=== PATIENT | male | born 1990 | race Caucasian/White ===

== ENCOUNTER 2024-06-07 13:43 | Emergency (ER) | payer OTHER, SELFPAY ==
--- NOTE | ~2024-06-07 | XR_ITS ---
EXAMINATION: XR finger 1st LT min 2V DATE: 06/07/2024 14:13 INDICATION: Left thumb injury. TECHNIQUE: 3 views of left thumb were obtained. COMPARISON: None. FINDINGS: There is a nondisplaced oblique fracture of tuft of first distal phalanx. 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 IMPRESSION: 1. Nondisplaced oblique fracture of tuft of first distal phalanx. Reviewed, dictated and finalized at location A.
--- NOTE | 2024-06-07 13:49 | ED.UPPEXIN ---
HPI - Extremity Injury (Upper) General Chief Complaint: Extremity Injury, Upper Stated Complaint: LT thump Pain Time Seen by Provider: 06/07/24 13:49 Source: patient Mode of arrival: ambulatory Limitations: no limitations History of Present Illness HPI narrative: Khadar's a 34-year-old male patient presenting to the clinic today with complaints of a left thumb injury that occurred at 11:00 a.m. this morning while at work. He reports he smashed his finger between a part and the machine. He was wearing gloves at that time. Has a superficial laceration to the volar aspect of the thumb as well as bleeding coming from underneath the thumbnail. States that the distal thumb is throbbing. Rates pain 6/10 currently. Bleeding is controlled. Tetanus is unknown Related Data Home Medications Medication Instructions Recorded Confirmed apixaban 5 mg tablet (Eliquis) 5 mg PO BID 06/07/24 06/07/24 lisinopril 20 mg tablet 20 mg PO DAILY 06/07/24 06/07/24 omeprazole 20 mg capsule,delayed 20 mg PO DAILY 06/07/24 06/07/24 release pantoprazole 40 mg tablet,delayed 40 mg PO QAM 06/07/24 06/07/24 release Allergies Allergy/AdvReac Type Severity Reaction Status Date / Time No Known Allergies Allergy Verified 06/07/24 13:48 Review of Systems Review of Systems: Pertinent positives per HPI. Patient denies any fever, chills, rash, headache, visual changes, dizziness, cough, runny nose, sore throat, shortness of breath, chest pain, palpitations, nausea, vomiting, diarrhea, constipation, abdominal pain, or any urinary issues. PMFSH Past Medical History Medical History (Updated 06/07/24 @ 14:53 by Khadar Corado APRN) Depression Headache Hx of blood clots Surgical History Surgical History H/O hernia repair Family History Family History Mother Bipolar 1 disorder Social History Social History Smoking status: Never smoker Alcohol intake: current Drinks per week: 1 Comments At the time of my signature, I reviewed and agree with the nursing past medical, surgical, social, and family history. There is no relevant family history pertinent to the patient complaint. Exam Narrative: General: Well-developed, well nourished, in no apparent distress Head: Normocephalic, atraumatic. Cardio: Regular rate and rhythm, s1 and s2 normal, no murmur appreciated. Resp: Clear to auscultation bilaterally, no rhonchi, rales, wheezing or rubs. Musculoskeletal: No deformity, bleeding noted from a under the nail, tender to palpation over the distal thumb, grossly normal range of motion, muscle strength strong and equal, peripheral pulse strong, no edema, no cyanosis, normal gait and station Integumentary: [place], warm, and dry, superficial laceration measuring 2 cm to the volar aspect of the thumb-bleeding is controlled and no closure needed Course Course Emergency Course: Portions of this record may have been created with voice recognition software. Level of Care: Express Care Visit Vital Signs Vital signs: Vital Signs Temperature 36.3 C L 06/07/24 14:02 Pulse Rate 62 06/07/24 14:02 Respiratory Rate 18 06/07/24 14:02 Blood Pressure 120/50 L 06/07/24 14:02 Pulse Oximetry 99 06/07/24 14:02 Oxygen Delivery Room Air 06/07/24 14:02 Temperature 36.3 C L 06/07/24 14:02 Pulse Rate 62 06/07/24 14:02 Respiratory Rate 18 06/07/24 14:02 Blood Pressure 120/50 L 06/07/24 14:02 Pulse Oximetry 99 06/07/24 14:02 Oxygen Delivery Room Air 06/07/24 14:02 Vital signs reviewed MDM - Extremity Injury (Upper) MDM Narrative Medical decision making narrative: At the time of visit patient is resting comfortably on the exam table. Patient appears to be nontoxic. Diagnostics: X-ray of the left thumb was performed show
[2024-06-07 14:02] VITALS: BP 120/50; PULSE 62; RESP 18; TEMP 36.3; O2SAT 99
[2024-06-07] MEDS: TETANUS,DIPHTHERIA,AC PERTUSSIS ADULT (0.5 ML) BOOSTRIX IM (14:16)
== END 2024-06-07 14:55 | disposition home or self-care (01) ==
PROVIDERS: Emergency Provider Nurse Practitioner Family; PCP Family Medicine
DX: S62.525B Nondisplaced fracture of distal phalanx of left thumb, initial encounter for open fracture (principal); W23.0XXA Caught, crushed, jammed, or pinched between moving objects, initial encounter; Y99.0 Civilian activity done for income or pay; Z23 Encounter for immunization; Z86.2 Personal history of diseases of the blood and blood-forming organs and certain disorders involving the immune mechanism; Z79.01 Long term (current) use of anticoagulants
CPT/HCPCS: 29130; 73140; 90471; 90715; 99213; 99214; G0463